=== PATIENT | female | born 1980 | race Caucasian/White ===

== ENCOUNTER 2021-08-24 09:13 | Emergency (ER) | payer SELFPAY ==
[2021-08-24] MEDS ORDERED: Ketorolac Tromethamine 30 MG/ML VIAL ONE (09:53)
== END 2021-08-24 10:20 | disposition home or self-care (01) ==
LOC: CSHERS 09:13
DX: M94.0 Chondrocostal junction syndrome [Tietze] (principal); F17.210 Nicotine dependence, cigarettes, uncomplicated
CPT/HCPCS: 93005; 93010; 96372; J1885